=== PATIENT | female | born 1990 | race Caucasian/White ===

== ENCOUNTER 2017-10-25 23:30 | Emergency (ER) | payer BC ==
--- NOTE | 2017-10-26 00:02 | ED Physician Documentation ---
PD HPI SYNCOPE - Stated complaint Stated Complaint: DIZZINESS - Chief complaint Chief Complaint: Cardiac - History obtained from History obtained from: Patient - History of Present Illness Witnessed: Unwitnessed Timing - onset: How many hours ago (1) Preceding symptoms: Headache (she had had some headache through the day but it was improving after taking Ibuprofen. She was sitting in bed and felt a wave of dizziness (somewhat vertiginous), warmth, and blurred vision. She felt lightheaded as stood up. Denies any return of headache nor any concurrent chest/ abd pain with it. [place] nauseated. She says the vertigo feeling improved, but remained with some lightheadedness and feeling of some weakness and tingling in both arms/hands. No focal weakness. No loss of vision. Symptoms improving enroute to ED.), Light headed, Generalized weakness. No: Chest pain, Palpitations, Dyspnea Associated symptoms: No: Chest pain, Palpitations, Dyspnea, Abdominal pain Contributing factors: No: Recent med change, Decreased PO intake, Noxious stimulae, Exertion Injury occurred: No: Fell, Head injury Similar symptoms before: Has not had sx before (had CHF with preeclampsia with 2 years ago but resolved and no residual CHF/cardiomyopathy. She was concerned about heart related causes with the symptoms today, though has not had any symptoms of CHF lately.) Recently seen: Not recently seen Review of Systems Constitutional: denies: Fever, Chills Eyes: reports: Decreased vision (blurred briefly). denies: Loss of vision, Photophobia Nose: denies: Rhinorrhea / runny nose, Congestion Throat: denies: Sore throat Cardiac: denies: Chest pain / pressure, Palpitations, Pedal edema, Calf pain Respiratory: denies: Dyspnea, Cough GI: reports: Nausea. denies: Abdominal Pain, Vomiting, Diarrhea : denies: Dysuria, Frequency, Missed period Skin: denies: Rash, Lesions Neurologic: reports: Generalized weakness, Near syncope, Headache (occasional migraines, with one earlier today that has resolved.). denies: Focal weakness, Numbness, Syncope, Altered mental status, Head injury Endocrine: denies: Weight loss PD PAST MEDICAL HISTORY - Past Medical History Cardiovascular: Congestive heart failure (with pre-eclampsia with 2 years ago; no subsequent problem) Respiratory: None Neuro: Migraines Endocrine/Autoimmune: None GI: None - Allergies Allergies/Adverse Reactions: Allergies Allergy/AdvReac Type Severity Reaction Status Date / Time ciprofloxacin [From Cipro] AdvReac Hives Verified 10/25/17 23:49 Penicillins AdvReac Hives Verified 10/25/17 23:49 Sulfa (Sulfonamide AdvReac Hives Verified 10/25/17 23:49 Antibiotics) - Social History Does the pt smoke?: No Does the pt have substance abuse?: No - Family History Family history: reports: Non contributory. denies: CAD, Sudden PD ED PE NORMAL - Vitals Vital signs reviewed: Yes - General General: Alert and oriented X 3, No acute distress, Well developed/nourished - HEENT HEENT: PERRL, EOMI (no nystagmus seen), Pharynx benign - Neck Neck: Supple, no meningeal sign, No adenopathy, No JVD - Cardiac Cardiac: RRR, No murmur - Respiratory Respiratory: Clear bilaterally - Abdomen Abdomen: Soft, Non tender - Derm Derm: Normal color, Warm and dry - Extremities Extremities: No deformity, No tenderness to palpate, Normal ROM s pain, No edema , No calf tenderness / cord - Neuro Neuro: Alert and oriented X 3, agricultural agent 2-12 intact, No motor deficit, No sensory deficit, Normal speech Eye Opening: Spontaneous Motor: Obeys Commands Verbal: Oriented GCS Score: 15 - Psych Psych: Normal mood, Normal affect Results - Vitals Vitals: Vital Signs - 24 hr 10/25/17 10/26/17 23:45 00:46 Temperature 37.0 C Heart Rate 111 H 80 Respiratory 17 15 Rate Blood Pressure 124/75 113/71 O2 Saturation 100 100 Oxygen O2 Source Room air - EKG (time done) 00:08 Rate: Rate (enter#) (81) Rhythm: NSR [place]: Normal Intervals: Normal [place] QRS: Normal Ischemia: Normal ST segments. No: ST elevation c/w ischemia, ST depression Compare to prior EKG: Old EKG unavailable - Labs Labs: Laboratory Tests 10/26/17 10/26/17 10/26/17 00:27 00:31 00:31 WBC 7.5 RBC 4.41 Hgb 11.8 L Hct 36.5 L MCV 82.7 MCH 26.8 L MCHC 32.4 RDW 15.8 H Plt Count 230 MPV 8.6 Neut # (Auto) 4.3 Lymph # (Auto) 2.3 [place] # (Auto) 0.6 Eos # (Auto) 0.3 Baso # (Auto) 0.1 Absolute Nucleated RBC 0.00 Nucleated RBC % 0.0 Sodium 136 Potassium 3.4 L Chloride 103 Carbon Dioxide 25 Anion Gap 8.0 BUN 7 Creatinine 0.7 Estimated GFR (MDRD) 100 Glucose 108 H Calcium 9.0 Magnesium 1.9 Total Bilirubin 0.2 AST 24 ALT 13 Alkaline Phosphatase 47 B-Natriuretic Peptide Total Protein 7.9 Albumin 4.1 Globulin 3.8 Albumin/Globulin Ratio 1.1 Lipase 49 Urine Color YELLOW Urine Clarity CLEAR Urine pH 6.0 Ur Specific [place] <=1.005 Urine Protein NEGATIVE Urine Glucose (UA) NEGATIVE Urine Ketones NEGATIVE Urine Occult Blood NEGATIVE Urine Nitrite NEGATIVE Urine Bilirubin NEGATIVE Urine Urobilinogen 0.2 (NORMAL) Ur Leukocyte Esterase NEGATIVE Ur Microscopic Review NOT INDICATED Urine Culture Comments NOT INDICATED Urine HCG, Qual NEGATIVE 10/26/17 00:31 WBC RBC Hgb Hct MCV MCH MCHC RDW Plt Count MPV Neut # (Auto) Lymph # (Auto) [place] # (Auto) Eos # (Auto) Baso # (Auto) Absolute Nucleated RBC Nucleated RBC % Sodium Potassium Chloride Carbon Dioxide Anion Gap BUN Creatinine Estimated GFR (MDRD) Glucose Calcium Magnesium Total Bilirubin AST ALT Alkaline Phosphatase B-Natriuretic Peptide 14 Total Protein Albumin Globulin Albumin/Globulin Ratio Lipase Urine Color Urine Clarity Urine pH Ur Specific [place] Urine Protein Urine Glucose (UA) Urine Ketones Urine Occult Blood Urine Nitrite Urine Bilirubin Urine Urobilinogen Ur Leukocyte Esterase Ur Microscopic Review Urine Culture Comments Urine HCG, Qual PD MEDICAL DECISION MAKING - ED course Complexity details: considered differential (sounds more likely cardiovascular and not neuro (not focal neuro, though could consider migraine aura without headache). ECG, BNP, BP, labs are good (minimally low K at 3.4). ), d/w patient - Sepsis Event Vital Signs: Vital Signs - 24 hr 10/25/17 10/26/17 23:45 00:46 Temperature 37.0 C Heart Rate 111 H 80 Respiratory 17 15 Rate Blood Pressure 124/75 113/71 O2 Saturation 100 100 Oxygen O2 Source Room air Departure - Departure Disposition: 01 Home, Self Care Clinical Impression: Near syncope Condition: Stable Record reviewed to determine appropriate education?: Yes Instructions: ED Near Syncope Unkn Comments: Your EKG, vital signs, blood pressure and blood tests appear normal here. I do not know the cause of your symptoms but there is no apparent serious cause at this time. Recheck if you have worsening symptoms or recurrent episodes.
[2017-10-26 00:40] LABS: BILIRUBIN,URINE NEGATIVE (NEGATIVE); GLUCOSE, URINE (UA) NEGATIVE (NEGATIVE); KETONES,URINE (UA) NEGATIVE (NEGATIVE); LEUKOCYTE ESTERASE, URINE NEGATIVE (NEGATIVE); NITRITE,URINE NEGATIVE (NEGATIVE); OCCULT BLOOD,URINE NEGATIVE (NEGATIVE); PROTEIN,URINE NEGATIVE (NEGATIVE); UROBILINOGEN,URINE 0.2 (NORMAL) E.U./dL (NORMAL)
[2017-10-26 00:40] LABS: BASOPHILS # (AUTO) 0.1 10^3/uL (0.0-0.1); EOSINOPHILS # (AUTO) 0.3 10^3/uL (0.0-0.7); EOSINOPHILS % (AUTO) 3.6 %; HGB - HEMOGLOBIN 11.8 g/dL (12.0-16.0); LYMPHOCYTES # (AUTO) 2.3 10^3/uL (1.5-3.5); LYMPHOCYTES % (AUTO) 30.2 %; MEAN CORPUSCULAR HEMOGLOBIN 26.8 pg (27.0-31.0); MEAN CORPUSCULAR HGB CONC 32.4 g/dL (32.0-36.0); MEAN CORPUSCULAR VOLUME 82.7 fL (81.0-99.0); MEAN PLATELET VOLUME 8.6 fL (7.9-10.8); MONOCYTES # (AUTO) 0.6 10^3/uL (0.0-1.0); MONOCYTES % (AUTO) 7.7 %; NEUTROPHILS # (AUTO) 4.3 10^3/uL (1.5-6.6); NEUTROPHILS % (AUTO) 57.5 %; PLT - PLATELET COUNT 230 10^3/uL (130-450); RED BLOOD COUNT 4.41 10^6/uL (4.20-5.40); RED CELL DISTRIBUTION WIDTH 15.8 % (12.0-15.0); WHITE BLOOD COUNT 7.5 x10^3/uL (4.8-10.8)
[2017-10-26 00:42] LABS: CLARITY,URINE CLEAR (CLEAR); HCG UR QUAL NEGATIVE
[2017-10-26 00:52] LABS: ALBUMIN 4.1 g/dL (3.2-5.5); ALBUMIN/GLOBULIN RATIO 1.1 (1.0-2.2); BILIRUBIN,TOTAL 0.2 mg/dL (0.2-1.0); CREATININE 0.7 mg/dL (0.4-1.0); MAGNESIUM 1.9 mg/dL (1.7-2.8); TOTAL PROTEIN 7.9 g/dL (6.7-8.2)
[2017-10-26 01:32] VITALS: BP 109/71
== END 2017-10-26 01:44 | disposition home or self-care (01) ==
LOC: ED 23:30
DX: R55 Syncope and collapse (principal)
CPT/HCPCS: 36415; 80053; 81001; 81003; 81025; 83690; 83735; 83880; 85025; 87086; 93005; 99283

== ENCOUNTER 2018-12-16 08:29 | Outpatient (CLI) | payer BC ==
--- NOTE | 2018-12-17 16:22 | Ultrasound Report ---
Reason: R NECK NODE, HEADACHES Procedure Date: 12/16/2018 Accession Number: [id number] / [id number] Procedure: US - Head or Neck Soft Tissue CPT Code: FULL RESULT: EXAM: NECK ULTRASOUND EXAM DATE: 12/16/2018 09:01 AM. CLINICAL HISTORY: Right neck node. Headaches. COMPARISON: None. TECHNIQUE: Real-time sonographic imaging was performed by the general manager farm utilizing color-flow. Multiple territory account representative static images were saved for review. FINDINGS: 1.2 x 0.4 x 1.2 cm normal-appearing lymph node in the deep subcutaneous fat corresponding to the area of concern. IMPRESSION: Normal lymph node noted corresponding to the palpable abnormality. RADIA
== END 2018-12-16 08:30 | disposition home or self-care (01) ==
LOC: DI 08:29
PROVIDERS: ATTEND Physician Assistant
DX: R22.1 Localized swelling, mass and lump, neck (principal); R51 Headache
CPT/HCPCS: 76536

== ENCOUNTER 2020-11-15 17:09 | Emergency (ER) | payer BC ==
[2020-11-15 17:40] LABS: BILIRUBIN,URINE NEGATIVE (NEGATIVE); GLUCOSE, URINE (UA) NEGATIVE (NEGATIVE); KETONES,URINE (UA) NEGATIVE (NEGATIVE); LEUKOCYTE ESTERASE, URINE NEGATIVE (NEGATIVE); NITRITE,URINE NEGATIVE (NEGATIVE); OCCULT BLOOD,URINE NEGATIVE (NEGATIVE); PROTEIN,URINE NEGATIVE (NEGATIVE); UROBILINOGEN,URINE 0.2 (NORMAL) E.U./dL (NORMAL)
[2020-11-15 17:42] LABS: BASOPHILS % (AUTO) 0.5 %; EOSINOPHILS # (AUTO) 0.1 10^3/uL (0.0-0.7); EOSINOPHILS % (AUTO) 1.1 %; HCT - HEMATOCRIT 39.3 % (37.0-47.0); HGB - HEMOGLOBIN 12.9 g/dL (12.0-16.0); LYMPHOCYTES # (AUTO) 1.6 10^3/uL (1.5-3.5); LYMPHOCYTES % (AUTO) 18.9 %; MEAN CORPUSCULAR HEMOGLOBIN 28.4 pg (27.0-31.0); MEAN CORPUSCULAR HGB CONC 32.8 g/dL (32.0-36.0); MEAN CORPUSCULAR VOLUME 86.6 fL (81.0-99.0); MEAN PLATELET VOLUME 10.2 fL (7.9-10.8); MONOCYTES # (AUTO) 0.6 10^3/uL (0.0-1.0); MONOCYTES % (AUTO) 6.8 %; NEUTROPHILS # (AUTO) 6.3 10^3/uL (1.5-6.6); NEUTROPHILS % (AUTO) 72.5 %; PLT - PLATELET COUNT 219 10^3/uL (130-450); RED BLOOD COUNT 4.54 10^6/uL (4.20-5.40); RED CELL DISTRIBUTION WIDTH 13.4 % (12.0-15.0); WHITE BLOOD COUNT 8.7 x10^3/uL (4.8-10.8)
[2020-11-15 17:42] LABS: CLARITY,URINE CLEAR (CLEAR); HCG UR QUAL NEGATIVE
[2020-11-15 17:54] LABS: ALBUMIN 4.4 g/dL (3.2-5.5); ALBUMIN/GLOBULIN RATIO 1.4 (1.0-2.2); BILIRUBIN,TOTAL 0.5 mg/dL (0.2-1.0); CREATININE 0.8 mg/dL (0.4-1.0); POTASSIUM 3.5 mmol/L (3.5-5.0); TOTAL PROTEIN 7.6 g/dL (6.7-8.2)
--- NOTE | 2020-11-15 23:06 | ED Physician Documentation ---
History of Present Illness - Stated complaint Stated Complaint: ABD PX,NAUSEA - Chief complaint Chief Complaint: Abd Pain - History obtained from History obtained from: Patient - Additonal information Additional information: Pt comes to ED c/o upper abd pain for 7 days. Any food intake makes it worse. She has been struggling with this on and off for some time, and nobody is quite sure what is causing it. Pt has had extensive testing, but not endoscopy. She was thought to have food allergies, but states she has stayed off everything on her "bad" list. Pt has vomited once. No fevers/chills. No change in bowel habits. No dysuria. No chest sx. Otherwise fairly healthy, except for -related issues. No other complaints at this time. Last US of GB 3 years ago. Review of Systems Ten Systems: 10 systems reviewed and negative Constitutional: reports: Reviewed and negative Eyes: reports: Reviewed and negative Ears: reports: Reviewed and negative Nose: reports: Reviewed and negative Throat: reports: Reviewed and negative Cardiac: reports: Reviewed and negative Respiratory: reports: Reviewed and negative GI: reports: Abdominal Pain, Nausea : reports: Reviewed and negative Skin: reports: Reviewed and negative Musculoskeletal: reports: Reviewed and negative Neurologic: reports: Reviewed and negative Psychiatric: reports: Reviewed and negative Endocrine: reports: Reviewed and negative Immunocompromised: reports: Reviewed and negative PD PAST MEDICAL HISTORY - Past Medical History Cardiovascular: Congestive heart failure Respiratory: None Neuro: Migraines Endocrine/Autoimmune: None GI: None - Past Surgical History Past Surgical History: No - Present Medications Home Medications: Ambulatory Orders Medication Instructions Recorded Confirmed Famotidine [Pepcid] 20 mg PO BID #60 tablet 11/15/20 Omeprazole [PriLOSEC] 20 mg PO DAILY 14 Days #14 11/15/20 Ondansetron Odt [Zofran Odt] 4 mg TL Q6H PRN #10 tablet 11/15/20 - Allergies Allergies/Adverse Reactions: Allergies Allergy/AdvReac Type Severity Reaction Status Date / Time ciprofloxacin [From Cipro] AdvReac Hives Verified 11/15/20 17:19 Penicillins AdvReac Hives Verified 11/15/20 17:19 Sulfa (Sulfonamide AdvReac Hives Verified 11/15/20 17:19 Antibiotics) - Social History Does the pt smoke?: No Smoking Status: Never smoker Does the pt drink ETOH?: No Does the pt have substance abuse?: No - Immunizations Immunizations are current?: Yes PD ED PE NORMAL - Vitals Vital signs reviewed: Yes - General General: Alert and oriented X 3, No acute distress, Well developed/nourished - HEENT HEENT: Atraumatic, PERRL, EOMI, Moist mucous membranes - Neck Neck: Supple, no meningeal sign - Cardiac Cardiac: RRR, No murmur - Respiratory Respiratory: No respiratory distress, Clear bilaterally - Abdomen Abdomen: Soft, Non distended, Other (Mild epigastric tend, no RB/guarding) - Derm Derm: Warm and dry - Extremities Extremities: No deformity - Neuro Neuro: Alert and oriented X 3 - Psych Psych: Normal mood, Normal affect Results - Vitals Vitals: Vital Signs - 24 hr 11/15/20 11/15/20 11/15/20 17:19 19:54 21:00 Temperature 36.6 C 36.7 C Heart Rate 118 H 99 84 Respiratory 16 16 18 Rate Blood Pressure 138/90 H 127/91 H 134/90 H O2 Saturation 98 100 100 11/15/20 23:19 Temperature Heart Rate 80 Respiratory Rate Blood Pressure 124/78 O2 Saturation 100 Oxygen O2 Source Room air - Labs Labs: Laboratory Tests 11/15/20 11/15/20 11/15/20 17:30 17:37 17:37 WBC 8.7 RBC 4.54 Hgb 12.9 Hct 39.3 MCV 86.6 MCH 28.4 MCHC 32.8 RDW 13.4 Plt Count 219 MPV 10.2 Neut # (Auto) 6.3 Lymph # (Auto) 1.6 [place] # (Auto) 0.6 Eos # (Auto) 0.1 Baso # (Auto) 0.0 Absolute Nucleated RBC 0.00 Nucleated RBC % 0.0 Sodium 140 Potassium 3.5 Chloride 102 Carbon Dioxide 23 Anion Gap 15.0 H BUN 11 Creatinine 0.8 Estimated GFR (MDRD) 84 L Glucose 119 H Calcium 9.0 Total Bilirubin 0.5 AST 23 ALT 17 Alkaline Phosphatase 50 Total Protein 7.6 Albumin 4.4 Globulin 3.2 Albumin/Globulin Ratio 1.4 Lipase 42 Urine Color YELLOW Urine Clarity CLEAR Urine pH 8.0 H Ur Specific [place] 1.020 Urine Protein NEGATIVE Urine Glucose (UA) NEGATIVE Urine Ketones NEGATIVE Urine Occult Blood NEGATIVE Urine Nitrite NEGATIVE Urine Bilirubin NEGATIVE Urine Urobilinogen 0.2 (NORMAL) Ur Leukocyte Esterase NEGATIVE Ur Microscopic Review NOT INDICATED Urine Culture Comments NOT INDICATED Urine HCG, Qual NEGATIVE - Rads (name of study) US upper abd Radiology: Final report received, EMP read indepedently, See rad report (neg) PD MEDICAL DECISION MAKING - ED course Complexity details: reviewed results, re-evaluated patient, considered differential, d/w patient, d/w family ED course: Pt was treated symptomatically in the ED. Labs were unremarkable. US of GB showed no stones or inflammation. I d/w pt and mom that pt should see a GI specialist and discussed further work-up/management, including potential scope. I have prescribed antacid therapy and Zofran. We have discussed the usual indications for return. Departure - Departure Disposition: Home, Self Care Clinical Impression: Abdominal pain Qualifiers: Abdominal location: upper abdomen, unspecified Qualified Code(s): R10.10 - Upper abdominal pain, unspecified Condition: Stable Instructions: ED Abdominal Pain Unkn Cause Prescriptions: Famotidine [Pepcid] 20 mg PO BID #60 tablet Omeprazole [PriLOSEC] 20 mg PO DAILY 14 Days #14 Ondansetron Odt [Zofran Odt] 4 mg TL Q6H PRN #10 tablet PRN Reason: Nausea / Vomiting Comments: Your labs and ultrasound look good tonight. It is not clear what is causing the pain you are having with food, but it is probably best for you to follow-up with the sludge control attendant at this time, given the ongoing issues. Your primary care physician can refer you to one for consideration of further testing and evaluation, specifically endoscopy. Please call first thing tomorrow morning to set up a follow-up appointment for all of this. In the meantime, please consider taking the medications for stomach inflammation and acid production, as well as for nausea. Discharge Date/Time: 11/15/20 23:32
[2020-11-15] MEDS: KETOROLAC 60 MG/2 ML VIAL IM STA (23:18)
[2020-11-15 23:19] VITALS: BP 124/78
--- NOTE | 2020-11-16 07:57 | Ultrasound Report ---
PROCEDURE: Abdomen Limited INDICATIONS: upper abd pain with food x 1 wk, nausea TECHNIQUE: Real-time scanning was performed of the abdominal and retroperitoneal organs, with image documentatio n. COMPARISON: None. FINDINGS: Liver: Liver is normal in size and homogeneous in echotexture. Gallbladder: Gallbladder is normal in appearance without gallbladder wall thickening, pericholecystic fluid, gallstones, or abnormal sonographic Dominguez's sign. Biliary ducts: Intrahepatic bile ducts are non-dilated. Extrahepatic bile duct caliber measures 4 m m. Normal is 6-7 mm or less in diameter, or 10 mm or less post-cholecystectomy. Pancreas: Visualized portions of the pancreas are sonographically normal. Kidneys: Kidneys are normal in size and echotexture. Right kidney measures cm long; left kidney measures cm long. No hydronephrosis or nephrolithiasis. No solid masses. Miscellaneous: No free abdominal fluid. IMPRESSION: Normal right upper quadrant abdominal ultrasound. No significant discrepancy with initial interpretation by overnight radiologist. Reviewed by: Andrew Villarreal MD on 11/16/2020 7:56 AM PDT Approved by: Andrew Villarreal MD on 11/16/2020 7:56 AM PDT Station ID: [id number]
== END 2020-11-15 23:32 | disposition home or self-care (01) ==
LOC: ED 17:09
DX: R10.13 Epigastric pain (principal); R11.2 Nausea with vomiting, unspecified
CPT/HCPCS: 36415; 80053; 81001; 81003; 81025; 83690; 85025; 87086; 96372; 99284

== ENCOUNTER 2021-05-29 18:53 | Emergency (ER) | payer BC ==
[2021-05-29] MEDS ORDERED: iohexoL-300 100 ML VIAL ONE (20:03)
[2021-05-29 20:15] LABS: BASOPHILS % (AUTO) 0.3 %; EOSINOPHILS % (AUTO) 0.3 %; HCT - HEMATOCRIT 40.9 % (37.0-47.0); HGB - HEMOGLOBIN 13.6 g/dL (12.0-16.0); LYMPHOCYTES # (AUTO) 1.3 10^3/uL (1.5-3.5); LYMPHOCYTES % (AUTO) 19.9 %; MEAN CORPUSCULAR HEMOGLOBIN 29.6 pg (27.0-31.0); MEAN CORPUSCULAR HGB CONC 33.3 g/dL (32.0-36.0); MEAN CORPUSCULAR VOLUME 89.1 fL (81.0-99.0); MEAN PLATELET VOLUME 10.4 fL (7.9-10.8); MONOCYTES # (AUTO) 0.5 10^3/uL (0.0-1.0); MONOCYTES % (AUTO) 7.1 %; NEUTROPHILS # (AUTO) 4.6 10^3/uL (1.5-6.6); NEUTROPHILS % (AUTO) 72.1 %; PLT - PLATELET COUNT 212 10^3/uL (130-450); RED BLOOD COUNT 4.59 10^6/uL (4.20-5.40); RED CELL DISTRIBUTION WIDTH 13.2 % (12.0-15.0); WHITE BLOOD COUNT 6.3 x10^3/uL (4.8-10.8)
[2021-05-29 20:20] LABS: BILIRUBIN,URINE NEGATIVE (NEGATIVE); GLUCOSE, URINE (UA) NEGATIVE (NEGATIVE); KETONES,URINE (UA) NEGATIVE (NEGATIVE); LEUKOCYTE ESTERASE, URINE NEGATIVE (NEGATIVE); NITRITE,URINE NEGATIVE (NEGATIVE); OCCULT BLOOD,URINE NEGATIVE (NEGATIVE); PROTEIN,URINE NEGATIVE (NEGATIVE); UROBILINOGEN,URINE 0.2 (NORMAL) E.U./dL (NORMAL)
[2021-05-29 20:23] LABS: CLARITY,URINE CLEAR (CLEAR); HCG UR QUAL NEGATIVE
[2021-05-29 20:35] LABS: ALBUMIN 4.4 g/dL (3.2-5.5); ALBUMIN/GLOBULIN RATIO 1.4 (1.0-2.2); BILIRUBIN,TOTAL 0.4 mg/dL (0.2-1.0); CREATININE 0.6 mg/dL (0.4-1.0); POTASSIUM 3.7 mmol/L (3.5-5.0); TOTAL PROTEIN 7.6 g/dL (6.7-8.2)
[2021-05-29] MEDS ORDERED: iohexoL-300 100 ML VIAL IVP ONE (21:22)
--- NOTE | 2021-05-29 21:29 | CT Report ---
PROCEDURE: ANGIO CHEST W/WO INDICATIONS: dyspnea, tachycardia, + covid CONTRAST: IV CONTRAST: Isovue 300 ml: 80 PO CONTRAST: *NO PO CONTRAST TECHNIQUE: After the administration of intravenous contrast, 2 mm axial images were acquired from the pulmonary apices to the posterior costophrenic angles during the arterial phase. In addition, 1 mm lung kernel and 5 mm soft tissue kernel reconstructions were performed. 3-dimensional coronal oblique maximum int ensity projection (MIP) reformats, 8 mm axial MIP, and 5 mm coronal and sagittal MPR reformats were t hen performed through the thorax. For radiation dose reduction, the following was used: automated exp osure control, adjustment of mA and/or kV according to patient size. COMPARISON: None. FINDINGS: Image quality: Excellent. Pulmonary arteries: Pulmonary arteries are normal in size, and demonstrate no intraluminal filling d efects to suggest central pulmonary embolism. Lungs and pleura: Lungs are clear. No pleural effusions or pneumothorax. Central and peripheral ai rways are patent. Mediastinum: Heart size is normal, without pericardial effusion. No mediastinal or hilar adenopathy . Thoracic aorta is normal in caliber and enhancement. Esophagus is normal in caliber, without hiat al hernia. Bones and chest wall: No suspicious bony lesions. Ribs and thoracic spine appear intact throughout. No axillary or supraclavicular adenopathy. Abdomen: Visualized upper abdominal solid organs appear normal in the early arterial phase of enhanc ement. IMPRESSION: No acute finding in the chest. Reviewed by: Bill Morris MD on 05/29/2021 9:27 PM PST Approved by: Bill Morris MD on 05/29/2021 9:27 PM PST Station ID: [id number]
[2021-05-29] MEDS ORDERED: SODIUM CHLORIDE 0.9% 1,000 ML IV STA (21:35)
--- NOTE | 2021-05-29 21:35 | ED Physician Documentation ---
History of Present Illness - Stated complaint Stated Complaint: SOA, DIZZINESS, C+ - Chief complaint Chief Complaint: General - History obtained from History obtained from: Patient - History of Present Illness Timing: How many days ago (9) Pain level max: 0 Pain level now: 0 - Additonal information Additional information: Patient is a 30-year-old female who presents to the emergency department stating that she has felt lightheaded and dizzy along with an elevated heart rate for the past several days. She has been sick with Covid for the past 9 days. She states that she is unvaccinated. She had a history of cardiomyopathy with her first child. She states that it is unusual for her to be tachycardic. No chest pain. No leg swelling. No recent surgery or travel. Not on control. Does not smoke. Worse with standing, better with lying down Review of Systems Ten Systems: 10 systems reviewed and negative Constitutional: denies: Fever, Chills Ears: denies: Ear pain Nose: denies: Rhinorrhea / runny nose, Congestion Throat: denies: Sore throat Cardiac: denies: Chest pain / pressure, Palpitations, Calf pain Respiratory: reports: Cough (dry). 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: Other : None HEENT: None Psych: None Musculoskeletal: None Derm: None Other Past Medical History: Preeclampsia - Past Surgical History Past Surgical History: No - Present Medications Home Medications: Ambulatory Orders Medication Instructions Recorded Confirmed Famotidine [Pepcid] 20 mg PO BID #60 tablet 11/15/20 Omeprazole [PriLOSEC] 20 mg PO DAILY 14 Days #14 11/15/20 Ondansetron Odt [Zofran Odt] 4 mg TL Q6H PRN #10 tablet 11/15/20 - Allergies Allergies/Adverse Reactions: Allergies Allergy/AdvReac Type Severity Reaction Status Date / Time ciprofloxacin [From Cipro] AdvReac Hives Verified 11/15/20 17:19 Penicillins AdvReac Hives Verified 11/15/20 17:19 Sulfa (Sulfonamide AdvReac Hives Verified 11/15/20 17:19 Antibiotics) - Social History Does the pt smoke?: No Smoking Status: Never smoker Does the pt drink ETOH?: No Does the pt have substance abuse?: No - Immunizations Immunizations are current?: Yes PD ED PE NORMAL - Vitals Vital signs reviewed: Yes - General General: Alert and oriented X 3, No acute distress, Well developed/nourished - HEENT HEENT: PERRL, Moist mucous membranes - Neck Neck: Supple, no meningeal sign - Cardiac Cardiac: RRR, No murmur, Strong equal pulses - Respiratory Respiratory: No respiratory distress, Clear bilaterally - Abdomen Abdomen: Soft, Non tender, Non distended - Derm Derm: Warm and dry - Extremities Extremities: No edema, No calf tenderness / cord - Neuro Neuro: Alert and oriented X 3 - Psych Psych: Normal mood, Normal affect Results - Vitals Vitals: Vital Signs - 24 hr 05/29/21 05/29/21 19:18 19:22 Temperature 37.1 C 37.1 C Heart Rate 97 97 Respiratory 18 18 Rate Blood Pressure 139/93 H 139/93 H O2 Saturation 100 100 Oxygen O2 Source Room air - Labs Labs: Laboratory Tests 05/29/21 05/29/21 05/29/21 20:09 20:09 20:16 WBC 6.3 RBC 4.59 Hgb 13.6 Hct 40.9 MCV 89.1 MCH 29.6 MCHC 33.3 RDW 13.2 Plt Count 212 MPV 10.4 Neut # (Auto) 4.6 Lymph # (Auto) 1.3 L [place] # (Auto) 0.5 Eos # (Auto) 0.0 Baso # (Auto) 0.0 Absolute Nucleated RBC 0.00 Nucleated RBC % 0.0 Sodium 139 Potassium 3.7 Chloride 103 Carbon Dioxide 26 Anion Gap 10.0 BUN 12 Creatinine 0.6 Estimated GFR (MDRD) 117 Glucose 108 H Calcium 9.0 Total Bilirubin 0.4 AST 41 ALT 58 Alkaline Phosphatase 81 Total Protein 7.6 Albumin 4.4 Globulin 3.2 Albumin/Globulin Ratio 1.4 Lipase 44 Urine Color YELLOW Urine Clarity CLEAR Urine pH 6.0 Ur Specific [place] 1.015 Urine Protein NEGATIVE Urine Glucose (UA) NEGATIVE Urine Ketones NEGATIVE Urine Occult Blood NEGATIVE Urine Nitrite NEGATIVE Urine Bilirubin NEGATIVE Urine Urobilinogen 0.2 (NORMAL) Ur Leukocyte Esterase NEGATIVE Ur Microscopic Review NOT INDICATED Urine Culture Comments NOT INDICATED Urine HCG, Qual NEGATIVE - Rads (name of study) CT angio chest Radiology: Final report received, EMP read contemporaneously, See rad report (No acute abnormality. No pulmonary embolus) PD MEDICAL DECISION MAKING - ED course Complexity details: reviewed results, re-evaluated patient, considered differential, d/w patient ED course: 30-year-old female with mild tachycardia. Likely related to dehydration from her recent illness. Improved with IV fluids. No evidence of heart failure at this time. Did have a remote history of cardiomyopathy. CT pulmonary angiogram does not reveal any pulmonary emboli. Patient is well- appearing, nontoxic. Afebrile. No hypoxia. No respiratory distress. We will have her follow-up with her doctor for further care. Patient counseled regarding signs and symptoms for which I believe and urgent re-evaluation would be necessary. Patient with good understanding of and agreement to plan and is comfortable going home at this time This document was made in part using voice recognition software. While efforts are made to proofread this document, sound alike and grammatical errors may occur. Departure - Departure Disposition: 01 Home, Self Care Clinical Impression: Tachycardia, Dehydration, COVID-19 Condition: Good Instructions: ED Viral Syndrome, ED Dehydration Follow-Up: your,doctor in 1 week [Other] Comments: Drink plenty of fluids and rest. Return if you worsen. Your laboratory studies and CT scan did not show any acute abnormalities today. Please follow-up with your doctor for further care.
[2021-05-29 22:44] VITALS: BP 121/70
== END 2021-05-29 22:44 | disposition home or self-care (01) ==
LOC: ED 18:53
DX: U07.1 COVID-19 (principal); E86.0 Dehydration; R00.0 Tachycardia, unspecified
CPT/HCPCS: 36415; 71275; 80053; 81003; 81025; 83690; 85025; 96360; 99284; Q9967; 81001; 87086

== ENCOUNTER 2021-07-07 09:01 | Outpatient (CLI) | payer BC | END 2021-07-07 09:02 | disposition home or self-care (01) | LOC: DI 09:01 | PROVIDERS: ATTEND Internal Medicine | DX: R00.2 Palpitations (principal); R06.2 Wheezing | CPT/HCPCS: 93306 ==

== ENCOUNTER 2023-07-19 11:30 | Outpatient (CLI) | payer BC ==
--- NOTE | 2023-07-19 20:05 | XRAY Report ---
PROCEDURE: Sacrum/Coccyx INDICATIONS: PAIN IN COCCYX TECHNIQUE: 2 views of the sacrum and coccyx acquired. COMPARISON: None. FINDINGS: Bones: No fractures or dislocations. No suspicious bony lesions. Soft tissues: Visualized bowel gas pattern is normal. No suspicious soft tissue densities. IMPRESSION: No visualized acute fracture or dislocation. However, occult injury cannot be excluded. Recommend alexia rt interval imaging follow-up in 7-10 days as clinically indicated for additional evaluation. . Reviewed by: Nila Ward MD on 07/19/2023 8:04 PM PDT Approved by: Nila Ward MD on 07/19/2023 8:04 PM PDT Station ID: [id number]
== END 2023-07-19 11:45 | disposition home or self-care (01) ==
LOC: DI.N 11:30
PROVIDERS: ATTEND Physician Assistant Medical
DX: M53.3 Sacrococcygeal disorders, not elsewhere classified (principal)